=== PATIENT | male | born 1990 | race Two or more races ===

== ENCOUNTER 2020-01-11 11:46 | Outpatient (CLI) | payer OTHER | END 2020-01-11 13:00 | disposition home or self-care (01) | LOC: OFIC 805 11:46 | PROVIDERS: ATTEND Otolaryngology Otology & Neurotology | DX: H69.81 Other specified disorders of Eustachian tube, right ear (principal); H74.8X1 Other specified disorders of right middle ear and mastoid; H60.8X1 Other otitis externa, right ear; J31.0 Chronic rhinitis ==

== ENCOUNTER 2021-11-18 14:13 | Emergency (ER) | payer OTHER ==
[~2021-11-18] VITALS: Ht 162.6 cm; Wt 126.1 kg
[2021-11-18] MEDS ORDERED: NORFLEX100MG PO (18:32)
== END 2021-11-18 20:03 | disposition home or self-care (01) ==
LOC: ER 14:13
DX: R20.0 Anesthesia of skin (principal); R20.2 Paresthesia of skin; Z88.6 Allergy status to analgesic agent

== ENCOUNTER 2021-12-04 06:47 | Outpatient (CLI) | payer OTHER ==
[~2021-12-04 06:47] MED LIST: NORFLEX100MG PO
== END 2021-12-04 06:49 | disposition home or self-care (01) ==
LOC: LAB 06:47
PROVIDERS: ATTEND Obstetrics & Gynecology
DX: Z20.828 Contact with and (suspected) exposure to other viral communicable diseases (principal)